=== PATIENT | male | born 1980 | race Two or more races ===

== ENCOUNTER 2017-05-13 16:02 | Emergency (ER) | payer OTHER ==
[~2017-05-13] VITALS: Ht 170.2 cm; Wt 72.6 kg
[2017-05-13 16:24] VITALS: BP 114/73
[2017-05-13] MEDS ORDERED: Tetanus/Diptheria/Pertussis Vaccine 0.5ml Syr IM ONE (16:30)
[2017-05-13] MEDS ORDERED: Bacitracin Oint UD TOPIC ONE (16:30)
--- NOTE | 2017-05-13 16:32 | Emergency Room Report ---
History of Present Illness General Chief Complaint: Laceration Source: Patient Present Illness HPI 36 yo male patient presents to ER for knife wound on right arm yesterday. Patient reports injury was an accident that occurred at work yesterday. Reports went to physician but was closing; was told to report to ER; did not go to ER this morning. 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 States was sharpening knife when was cut by knife. Reports boss put unknown medication on top of wound; does not know what it was. Does not know vaccination status. Denies active bleeding today. Denies fever, chest pain, SOB. Allergies: Coded Allergies: No Known Allergies (Unverified , 05/13/17) Patient History Past Medical History: see triage record Reviewed Nursing Documentation: PMH: Agreed, PSxH: Agreed Nursing Documentation-PMH Past Medical History: No Stated History Review of Systems All Other Systems: negative except mentioned in HPI Physical Exam Vital Signs Date Time Temp Pulse Resp B/P (MAP) Pulse Ox O2 Delivery O2 Flow Rate FiO2 05/13/17 16:14 97.7 63 16 112/70 96 Room Air 97.7 Sp02 EP Interpretation: reviewed, normal General Appearance: well appearing, no apparent distress, alert, GCS 15 Head: normocephalic, atraumatic Eyes: bilateral eye normal inspection, bilateral eye PERRL ENT: hearing grossly normal, normal pharynx, no angioedema, normal voice, uvula midline, moist mucus membranes Neck: full range of motion Respiratory: lungs clear, normal breath sounds, no rhonchi, no respiratory distress, no accessory muscle use, no wheezing, speaking full sentences Cardiovascular #1: regular rate, rhythm, no edema Cardiovascular #2: 2+ radial (R), 2+ radial (L) Gastrointestinal: non tender, soft, no mass, non-distended, no guarding, no rebound Genitourinary: no CVA tenderness Musculoskeletal: back normal, digits/nails normal, gait/station normal, normal range of motion, non-tender, other - NVI Neurologic: alert, oriented x3, responsive, motor strength/tone normal, sensory intact Psychiatric: mood/affect normal Skin: no rash, other - right foeram, 1-2 cm scab, circular, no active bleeding , brown in color, no surrounding erythema, edema or signs of infection, no TTP Lymphatic: no adenopathy Medical Decision Making PA Attestation Dr. Fernández is my supervising Physician whom patient management has been discussed with. Diagnostic Impression: Primary Impression: Scab ER Course Pt presents to ED c/o laceration on right wrist. DDX considered but are not limited to laceration, abrasion, contusion, cellulitis. VITAL SIGNS are WNL, patient is afebrile On PE patient wound has scabbed over, no signs of surrounding cellulitis, no erythema, or edema; no active bleeding or drainage. Patient has full ROM of elbow, wrist and hand, sensation intact to light touch, NVI. Does not require imaging at this time. Ordered TDAP and medication. ED COURSE: Wound was cleaned and irrigated using normal saline. Patient wound has appeared to scabbed over, has prevented bleeding. Believe it would be more harmful than beneficial to remove scab and treat wound. Believe wound to be superficial, not requiring sutures at this time. Wound cleaned and covered using sterile dressing and Bacitracin. Will provide patient with antibiotics to prevent possible infection. Instructed patient to followup with primary care provider for wound check. Patient reports understanding and agreement to treatment plan. DISCHARGE: Rx provided for Bactrim to cover for MRSA Rx provided for Bacitracin ointment At this time pt is stable for d/c to home. Patient is resting comfortably, in no acute distress, nontoxic appearing. Completed workers comp. paperwork for patient. Will provide with patient care instructions and any necessary prescriptions. Patient to take medication as instructed. Care plan and follow-up instructions provided. Work note provided to patient. Patient questions asked and answered. Patient instructed to follow-up with primary care provider in 1-3 days for wound check and 7-10 days for removal of sutures. Patient instructed to followup with PCP to discuss further treatment plan and ability to go to work, ER precautions given. Patient instructed to return to ER immediately for any new or worsening of symptoms. Last Vital Signs Date Time Temp Pulse Resp B/P (MAP) Pulse Ox O2 Delivery O2 Flow Rate FiO2 05/13/17 16:24 97.9 71 16 114/73 98 Room Air 97.9 Disposition: HOME, SELF-CARE Condition: Stable Scripts Trimethoprim/Sulfamethoxazole 160/800* (BACTRIM DS TABLET*) 1 Each Tablet 1 TAB ORAL TWICE A DAY for 7 Days, #14 TAB Prov: Jason Gomez PSaeidASaeid 05/13/17 Bacitracin/Polymyxin B Sulfate (BACITRACIN-POLYMYXIN OINTMENT) 28.35 Gm Oint...g. 1 APPLIC TP BID for 7 Days, GM Prov: Jason Gomez 05/13/17 Patient Instructions: Abrasion, [id number], Nonsutured Laceration Care Additional Instructions: Followup with primary care provider in 2-3 days for wound check. Discuss further treatment and referral at that time. Take medications as directed. Patient questions asked and answered. ER precautions given, patient instructed to return to ER immediately for any new or worsening of symptoms. Jason Gomez May 13, 2017 16:32
[2017-05-13] MEDS ORDERED: Hydrogen Peroxide 473ml Bottle TOPIC ONE (17:39)
[2017-05-13] MEDS ORDERED: BACITRACIN-P28.35 GM TP (17:59)
[2017-05-13] MEDS ORDERED: BACTRIM DS TAB1 EAC1 ORAL (17:59)
[2017-05-13 18:28] VITALS: BP 109/77
== END 2017-05-13 18:30 | disposition home or self-care (01) ==
LOC: EMR 18:30
DX: R23.4 Changes in skin texture (principal); S61.511A Laceration without foreign body of right wrist, initial encounter; W26.0XXA Contact with knife, initial encounter; Y92.512 Supermarket, store or market as the place of occurrence of the external cause; Y99.0 Civilian activity done for income or pay; Z23 Encounter for immunization
CPT/HCPCS: 90471; 90715; 99284